=== PATIENT | female | born 1935 | race Two or more races ===

== ENCOUNTER 2018-05-07 14:18 | Emergency (ER) | payer OTHER, MEDICAID ==
[~2018-05-07] VITALS: Ht 157.5 cm; Wt 59.0 kg
[2018-05-07 15:15] LABS: Basophils # (auto) 0 uL; Basophils % (auto) 0.4 % (0.0-2.0); Eosinophils # (auto) 0.1 uL; Lymphocytes # (auto) 0.5 uL; Monocytes # (auto) 0.4 uL
[2018-05-07 15:18] LABS: Eosinophils % (auto) 1.9 % (0.0-7.0); Hemoglobin 13.6 g/dL (12.2-16.2); Lymphocytes % (auto) 10.4 % (10.0-50.0); Mean Corpuscular Hemoglobin 34.7 pg (28.0-32.0); Monocytes % (auto) 6.9 % (0.0-12.0); Neutrophils # (auto) 4.1 uL; Neutrophils % (auto) 80.4 % (37.0-80.0); Nucleated Red Blood Cells % 0.2 %; Platelet Count (auto) 107 10^3/uL (140-450); Red Blood Cells 3.92 10^6/uL (4.0-5.20); Red Cell Distribution Width 14.1 % (11.8-14.3); White Blood Cell 5.1 10^3/uL (4.4-10.8)
[2018-05-07 15:23] LABS: INR 1.08 (0.9-1.15); Partial Thromboplastin Time 28.5 sec (23.78-33.04); Prothrombin Time 11.5 sec (9.27-12.13)
[2018-05-07 15:30] LABS: BUN/Creatinine Ratio 16.7; Bilirubin, Total 0.8 mg/dL (0.2-1.0); Total Protein 7.1 g/dL (6.4-8.2)
[2018-05-07] MEDS: ONDANSETRON HCL 4 MG/2 ML VIAL IV ONE (15:58)
[2018-05-07] MEDS: MORPHINE SULFATE 4 MG/ML SYR/VIAL IV ONE (15:58)
[2018-05-07] MEDS: HYDROmorphone HCL 2 MG/ML VL IV ONE (17:34)
[2018-05-07 18:06] LABS: Urine Bacteria NONE SEEN /hpf (None Seen); Urine Blood Negative /uL (Negative); Urine Specific Gravity 1.009 (1.001-1.035); Urine WBC 1 /hpf (0 - 5)
[2018-05-07 18:30] VITALS: BP 176/77
== END 2018-05-07 18:51 | disposition short-term general hospital (02) ==
LOC: ER 14:21
CPT/HCPCS: 36415 ×2; 51702 ×2; 71045 ×2; 73700 ×2; 80053 ×2; 81001 ×2; 85025 ×2; 85610 ×2; 85730 ×2; 93005; 94761 ×2; 96374 ×2; 96375 ×2; 99285; J1170; J2270; J2405 ×2